=== PATIENT | male | born 1980 | race Hispanic/Latino ===

== ENCOUNTER 2023-05-06 11:00 | Emergency (ER) | payer SELFPAY ==
[2023-05-06] MEDS ORDERED: Ondansetron ODT 4 MG TAB ONE (11:41)
[2023-05-06] MEDS ORDERED: HYDROcodone/Acetaminophen 5/325 mg Tablet ONE (11:41)
[2023-05-06 12:40] LABS: Hematocrit 41.5 % (42.0-52.0); Hemoglobin 13.7 g/dL (14.0-18.0); Mean Corpuscular HGB CONC 32.9 g/dL (32.0-36.0); Mean Corpuscular Hemoglobin 31.7 pg (27.0-31.0); Mean Corpuscular Volume 96.1 fl (78.0-98.0); Mean Platelet Volume 8.7 fL (7.4-10.4); Platelet Count 243 10x3/uL (130-400); RBC Distribution Width 12.2 % (11.5-14.5); Red Blood Cell (RBC) Count 4.32 mill/uL (4.70-6.10); White Blood Cell (WBC) Count 21.7 10x3/uL (4.8-10.8)
[2023-05-06 12:44] LABS: MDiff Complete? YES; Manual Diff?? YES
[2023-05-06 12:45] LABS: Lymphocytes 9 % (21-51); Monocytes 5 % (0-10); RBC Morph Comment Within Normal Limits
[2023-05-06 12:46] LABS: Platelet Adequacy Comment Appears Adequate
[2023-05-06 12:47] LABS: Band 3 % (5-11); Neutrophil 83 % (42-75)
[2023-05-06 12:51] LABS: ALT (SGPT) 21 U/L (8-55); AST (SGOT) 16 U/L (5-34); Albumin 3.8 g/dL (3.5-5.0); Alkaline Phosphatase 75 U/L (40-110); Anion Gap 13 mmol/L (10-20); BUN (Urea Nitrogen) 14 mg/dL (8.9-20.6); Calc. Creatinine Clearance 0 mL/min (70-130); Calcium 9.1 mg/dL (7.8-10.44); Carbon Dioxide 24 mmol/L (22-29); Chloride 106 mmol/L (98-107); Estimated GFR 110; Globulin 3.1 g/dL (2.4-3.5); Glucose 110 mg/dL (70-105); Potassium 4.3 mmol/L (3.5-5.1); Protein, Total 6.9 g/dL (6.0-8.3); Sodium 139 mmol/L (136-145)
[2023-05-06 12:54] LABS: Bilirubin Moderate (Negative); Blood, Urine Large (Negative); Clarity Cloudy (Clear); Glucose, Urine (Dipstick) Negative (Negative); Ketone, Urine 15 mg/dL (Negative); Leukocyte Negative (Negative); Nitrite Positive (Negative); Protein, Urine (Dipstick) > or equal to 300 mg/dL (Neg-Trace)
[2023-05-06 13:03] LABS: Specific Gravity, Urine 1.043 (1.002-1.036)
[2023-05-06 13:09] LABS: Bacteria/HPF 2+ HPF (None Seen); CAUTI Indications for Culture Pelvic or flank pain; RBC/HPF Greater than 50 HPF (0-3); Squamous Epithelial 0-3 HPF (0-3)
[2023-05-06 13:11] LABS: Urine Culture Reflex No No
== END 2023-05-06 13:53 | disposition home or self-care (01) ==
LOC: MADERS 11:00
DX: N45.2 Orchitis (principal); N39.0 Urinary tract infection, site not specified; F17.210 Nicotine dependence, cigarettes, uncomplicated
CPT/HCPCS: 74176; 76870; 80053; 81001; 85025; 93976; Q0162